=== PATIENT | female | born 1970 | race Caucasian/White ===

== ENCOUNTER → 2024-06-28 | Outpatient (CLI) | payer BC ==
--- NOTE | 2024-06-28 18:07 | US ---
EXAMINATION TYPE: US abdomen limited DATE OF EXAM: 06/28/2024 COMPARISON: EXAMINATION TYPE: US abdomen limited DATE OF EXAM: 06/28/2024 COMPARISON: NONE CLINICAL INDICATION: Female, 53 years old with history of mass lump left lower area; Lump left lower quadrant. TECHNIQUE: Grayscale with or without color Doppler imaging of the area of hernia concern. Real-time scanning was performed by the nursery rn utilizing Valsalva and additional dynamic maneuve rs to assess for hernia. Images of the contralateral side were also acquired for direct comparison. FINDINGS: Assess for hernia at location of: Scanned area of concern no evidence of hernia visualized. No abnor mality identified. IMPRESSION: No visualized hernia. No abnormality identified. Consider further evaluation with CT abd omen and pelvis if there is continued clinical concern. [facility], , 06/28/2024 6:04 PM
--- NOTE | 2024-06-28 18:13 | US ---
EXAMINATION TYPE: US pelvis complete transvag DATE OF EXAM: 06/28/2024 COMPARISON: NONE CLINICAL INDICATION: Female, 53 years old with history of R19.04 LLQ PAIN AND SWELLING; Lump swellin g lower left pelvic area. TECHNIQUE: Transvaginal (TV) and Transabdominal (TA) . FINDINGS: EXAM MEASUREMENTS: Uterus: 16.4 x 7.9 x 8.4 cm Endometrial Stripe: Not visualized due to fibroids. Right Ovary: 2.2 x 3.0 x 2.2 cm Left Ovary: 3.1 x 3.3 x 3.1 cm 1. Uterus: Multiple fibroids visualized enlarged uterus. Largest 7.3 x 5.6 x 6.7 cm. 2. Endometrium: Obscured 3. Right Ovary: Cystic area 1.7 x 2.4 cm 4. Left Ovary: Cystic area seen 2.3 x 2.3 x 2.6 cm. 5. Bilateral Adnexa: limited 6. Posterior cul-de-sac: limited Multiple fibroids identified within the enlarged uterus with venetian blind shadowing. The endometriu m is obscured. Right ovarian 2.4 cm simple appearing cyst. Left ovarian cyst measuring up to 2.6 cm w ith a daughter cyst sign. No free fluid is identified. IMPRESSION: 1. Bulky fibroid changes of the uterus. 2. Nonvisualization of the endometrium due to #1. 3. Bilateral ovarian cysts measuring up to 2.6 cm. [facility], , 06/28/2024 6:10 PM
== END | disposition home or self-care (01) ==
LOC: RADUSWWP 08:19
PROVIDERS: ATTEND Family Medicine
CPT/HCPCS: 76705; 76830; 76856